=== PATIENT | female | born 1950 | race Caucasian/White ===

== ENCOUNTER 2024-06-19 00:13 | Inpatient (IN) | payer MEDICARE, SELFPAY ==
[2024-06-19] VITALS (38 sets, daily range): BP systolic 134–224; BP diastolic 72–120; PULSE 68–99; RESP 12–98; TEMP 36.3–37.5; O2SAT 95–100; BMI 21.6
--- NOTE | 2024-06-19 00:22 | EDNOTE_ITS ---
ED General RME/HPI General Chief complaint: Altered Mental Status Stated complaint: LEFT SIDED WEAKNESS,FELL, HIT HEAD Time Seen by Provider: 06/19/24 01:03 Arrival date/time: 06/19/24 00:13 RME / HPI RME / HPI narrative: Dr. Azevedo?s Main ED Evaluation: 73yo female BIB family via private auto presents to the ED for neurological symptoms. Stroke alert initiated at 0020. Patient states she went to bed at 2230, reporting she woke up just [employer] and reached over to grab water off of her nightstand when she started having left- sided numbness. She couldn't feel her left-sided extremities and fell out of bed, reporting she hit her head. She denies any history of similar symptoms. Denies any headache, neck pain, slurred speech or any other associated symptoms. No known allergies. Related Data Home Medications ?Medication ?Instructions ?Recorded ?Confirmed acetaminophen 650 mg 650 mg PO Q8HR PRN Pain 06/19/24 06/19/24 tablet,extended release albuterol sulfate 90 mcg/actuation 2 puff inhalation Q4-5H PRN 06/19/24 06/19/24 aerosol inhaler Shortness Of Breath alprazolam 0.5 mg tablet 0.5 mg PO QPM 06/19/24 06/19/24 budesonide 160 mcg-glycopyr 9 1 puff inhalation 2XD 06/19/24 06/19/24 mcg-formot 4.8 mcg/actuation HFA inhaler (Breztri Aerosphere) fluticasone propionate 50 1 spray intranasal 1XD 06/19/24 06/19/24 mcg/actuation nasal spray,suspension lisinopril 10 mg tablet 10 mg PO 1XD 06/19/24 06/19/24 Previous Rx's ?Medication ?Instructions ?Recorded aspirin 81 mg tablet,delayed 81 mg PO QDAY 30 days #30 tabs 06/20/24 release atorvastatin 80 mg tablet 80 mg PO HS 30 days #30 tabs 06/20/24 clopidogrel 75 mg tablet 75 mg PO QDAY 30 days #30 tabs 06/20/24 Allergies Allergy/AdvReac Type Severity Reaction Status Date / Time No Known Allergies Allergy Verified 06/19/24 00:27 Review of Systems Review of Systems Systems Reviewed: All systems reviewed, normal except as documented Narrative Review of Systems: Gen: No fever, no chills, no weight loss EYES: No discharge, no visual changes, no pain HEENT: No ear pain, no congestion, no sore throat PULM: No shortness of breath, no cough, no congestion CV: No chest pain, no dyspnea on exertion, no palpitations GI: No nausea, no vomiting, no diarrhea, no pain, no constipation : No frequency, no urgency, no dysuria Musc/skel: No joint pain, no back pain Skin: No rash Psyc: No hallucinations, no depression Heme/Lymph: No easy bleeding or bruising tendencies Neuro: + LUE weakness, no headache, + head strike Past Medical History Past Medical History NEUROLOGIC: Negative Neurological Disorders or Seizures CARDIAC: Positive Cardiac Disorders and Hypercholesterolemia; Negative Congestive Heart Failure RESPIRATORY: Positive Chronic Obstructive Pulmonary Disease (COPD) GASTROINTESTINAL: Positive Gastrointestinal Disorders, Ulcer, Hiatal Hernia, Gastroesophageal Reflux Disease and Obesity GENITOURINARY: Positive Genitourinary Disorders (Stress incontinence); Negative Renal Disease REPRODUCTIVE: Positive Previous Pregnancies MUSCULOSKELETAL: Positive Musculoskeletal Disorders, Arthritis and Rheumatoid Arthritis ENDOCRINE: Negative Endocrine Disorders, Diabetes Mellitus Type 1, Diabetes Mellitus Type 2 or Hypothyroidism HEMATOLOGIC: Negative Blood Disorders or Anemia PSYCHO/SOCIAL: Positive Depression and Anxiety OTHER HISTORY: Positive Falls; Negative Hospitalization, Blood Transfusions, Blood Transfusion Reaction, Anesthesia Reactions or Cancer Surgical History SURGICAL: Positive Hysterectomy Social History SMOKING STATUS: Light (< 1 pack/day) ED Exam Narrative Physical exam: GENERAL APPEARANCE: alert and oriented x 4, well-developed, well-nourished, no acute distress HEENT: Normocephalic, atraumatic; pupils equal, round, reactive to light; EOMI; mucous membranes pink, moist; oropharynx clear NECK: Supple LUNGS: CTABL; no wheezes, no rales, no rhonchi HEART: Regular rate, regular rhythm; normal S1, S2; no murmurs ABDOMEN: non distended; normal BS; soft, no tenderness, no guarding, no rebound; no masses, no organomegaly, no hernia BACK: no CVA tenderness EXTREMITIES: atraumatic; no edema NEUROLOGIC: awake; alert and oriented x4; cranial nerves II-XII grossly intact; LUE weakness, no pronator drift PSYCHIATRIC: appropriate mood and affect SKIN: warm, dry, normal color; no rashes Course Course Course Narrative: 0020: Stroke alert initiated from triage. I immediately went to evaluate the patient. Quality Measures Suspected type of Stroke: TIA Tenecteplase given: Reason(s) TPA not given: Unable to determine eligibility not given stroke Orders Category Date Time Status Bedside Blood Glucose NOW Care 06/19/24 00:23 Completed Finishing Machine Operator Automatic NOW Care 06/19/24 00:23 Completed Continuous Pulse Oximetry NOW Care 06/19/24 00:23 Completed EKG (ED ONLY) *Do not use* NOW Care 06/19/24 00:23 Completed In and Out Catheter NEEDED Care 06/19/24 00:23 Completed Insert IV NOW Care 06/19/24 00:23 Completed NIH Stroke Scale now Care 06/19/24 00:23 Completed NPO NOW Care 06/19/24 00:23 Completed Nurse Swallow Screen x1 Care 06/19/24 00:23 Completed Consult to Neurology / Tele-Neurology Routine Cons 06/19/24 00:[address] angio stroke protocol Stat Exams 06/19/24 00:[address] stroke protocol Stat Exams 06/19/24 00:23 Completed EKG (ED Only) Stat Exams 06/19/24 00:23 Draft Alcohol, Blood Medical Stat Lab 06/19/24 00:30 Completed B-Type Natriuretic Peptide Stat Lab 06/19/24 00:30 Completed CBC Stat Lab 06/19/24 00:30 Completed Comprehensive Metabolic Panel Stat Lab 06/19/24 00:30 Completed Drug Screen,Urine Stat Lab 06/19/24 08:20 Completed Magnesium Stat Lab 06/19/24 00:30 Completed Partial Thromboplastin Time Stat Lab 06/19/24 00:30 Completed Prothrombin Time with INR Stat Lab 06/19/24 00:30 Completed Troponin I Stat Lab 06/19/24 00:30 Completed Urinalysis Stat Lab 06/19/24 08:20 Completed Urine Culture Stat Lab 06/19/24 08:20 Completed Aspirin Med 06/19/24 01:03 Discontinued 325 mg PO X1 ONE Ondansetron Inj [Zofran Inj] Med 06/19/24 00:23 Discontinued 4 mg IV Q4HR PRN Oxygen Delivery NOW RT 06/19/24 00:23 Completed Vital Signs Vital signs: Vital Signs Temperature 97.5 F 06/19/24 00:28 Pulse Rate 98 06/19/24 00:28 Respiratory Rate 18 06/19/24 00:28 Blood Pressure 224/120 H 12/11/24 00:28 Pulse Oximetry (%) 99 06/19/24 00:28 Oxygen Delivery Method Room Air 06/19/24 00:28 [facility] Patient data External records reviewed:: [facility] previous records (Per chart review, patient has no previous ED visits or admissions to this facility.) Clinical information provided by:: patient Social determinants that could affect healthcare access:: none Patient has the following chronic illnesses:: COPD, HLD, anxiety, depression How is presenting disease/condition affected by chronic disease/condition?: u neffected by Evaluation data The following diagnostics were reviewed and interpreted by me:: lab results, radiology exam(s) and EKG tracing(s) Lab and/or radiology exams considered but not ordered:: none Interpretation Summary: CBC is normal, CMP is normal, Troponin is normal, PT and INR are normal, PTT is normal, according to my interpretation. EKG done at 0059, NSR, rate of 93, occasional PAC, normal intervals, no acute ST or T wave changes, no STEMI, according to my interpretation. -------- Telerad Preliminary Report Draft Patient: ALEXX GUPTA [facility]. Record#: [id number] Birthdate: 1950 Age/Sex: 73 / F Location: [facility] Attending Dr: Ordering Physician: Date of Service: Procedure(s): Accession Number(s): cc: ~ CT scan of the head without intravenous contrast (axial sections with sagittal and coronal reformats) June 19, 2024 at 0027 hours Clinical history: Focal neuro deficit, stroke suspected. Comparison: No prior study is available for comparison. Findings: There is no evidence of intracranial hemorrhage, mass effect or midline shift. There are periventricular white matter hypodensities, compatible with chronic small vessel ischemia. There is moderate volume loss. The calvarium is unremarkable. The mastoid air cells and the visualized paranasal sinuses are clear. Impression: No evidence of intracranial hemorrhage, mass effect or midline shift. Periventricular chronic small vessel ischemia and volume loss. Aspect score 10. Discussion Details: Results verbally communicated to : Dr. Azevedo at 12:42 AM 06/19/2024 Report Electronically Signed By: Leeroy Cavazos 06/19/2024 12:46:24 AM [EST] Medications Medications considered but not ordered:: none Medication administrations:: Medication Administration History Discontinued Medications Acetaminophen (Acetaminophen 325 Mg Tablet) 650 mg PO Q6H PRN PRN Reason: Fever >100.3 or Pain 1-3 Stop: 07/19/24 01:18 Last Admin: 06/19/24 15:55 Dose: 650 mg Documented By: AM Albuterol/Ipratropium (Albuterol/Ipratropium (Duoneb) Rt June 3 Ml Nebu) 3 ml INH Q6HRRT PRN PRN Reason: SHORTNESS OF BREATH OR WHEEZE Stop: 07/19/24 06:59 Aspirin (Aspirin 325 Mg Tablet) 325 mg PO X1 ONE Stop: 06/19/24 01:04 Last Admin: 06/19/24 01:11 Dose: 325 mg Documented By: DAISY Aspirin (Aspirin 325 Mg Tablet) 325 mg PO QDAY [facility] Stop: 07/19/24 08:59 Last Admin: 06/19/24 08:51 Dose: 325 mg Documented By: NINI Aspirin (Aspirin Ec 81 Mg Tabec) 81 mg PO X1 JOYCE Stop: 07/20/24 08:59 Aspirin (Aspirin Ec 81 Mg Tabec) 81 mg PO QDAY JOYCE Stop: 07/20/24 08:59 Last Admin: 06/20/24 08:17 Dose: 81 mg Documented By: HORACIO Atorvastatin Calcium (Atorvastatin Calcium 20 Mg Tablet) 80 mg PO HS JOYCE Stop: 07/19/24 20:59 Last Admin: 06/19/24 22:41 Dose: 80 mg Documented By: URIAH Clopidogrel Bisulfate (Clopidogrel Bisulfate 75 Mg Tablet) 75 mg PO QDAY JOYCE Stop: 07/19/24 13:14 Last Admin: 06/20/24 08:17 Dose: 75 mg Documented By: Admin: 06/19/24 13:16 Dose: 75 mg Documented By: AM Heparin Sodium (Porcine) (Heparin Sod Inj 5000 Unit/Ml Vial) 5,000 unit SC Q12HR JOYCE Stop: 07/03/24 08:59 Last Admin: 06/20/24 08:21 Dose: Not Given Documented By: HORACIO Non-Admin Reason: Per MD rogerio jensen Admin: 06/19/24 22:40 Dose: 5,000 unit Documented By: URIAH Co-signed By: HORACIO Admin: 06/19/24 08:51 Dose: 5,000 unit Documented By: AM Co-signed By: KYLIE Magnesium Sulfate (Magnesium Sulfate Ivpb) 4 gm in 50 mls @ 12.5 mls/hr IV X1 ONE Stop: 06/20/24 11:46 Last Admin: 06/20/24 08:16 Dose: 12.5 mls/hr Documented By: HORACIO Labetalol HCl (Labetalol Inj 5 Mg/Ml Vial 20 Ml) 10 mg IVP X1 ONE Stop: 06/19/24 01:17 Last Admin: 06/19/24 04:39 Dose: Not Given Documented By: TC Non-Admin Reason: Contraindicated Labetalol HCl (Labetalol Inj 5 Mg/Ml Vial 20 Ml) 10 mg IVP Q2HR PRN PRN Reason: elevated blood pressure Stop: 07/19/24 01:59 Lisinopril (Lisinopril 2.5 Mg Tablet) 10 mg PO QDAY JOYCE Stop: 07/20/24 08:59 Last Admin: 06/20/24 08:17 Dose: 10 mg Documented By: HORACIO Metoclopramide HCl (Metoclopramide Inj 5 Mg/Ml Vial 2 Ml) 10 mg IVP X1 ONE; Protocol Stop: 06/19/24 17:33 Last Admin: 06/19/24 18:06 Dose: 10 mg Documented By: AM Ondansetron HCl (Ondansetron Inj 2 Mg/Ml Inj 2 Ml) 4 mg IV Q4HR PRN PRN Reason: NAUSEA OR VOMITING Stop: 07/19/24 00:22 see above Consultations Consultation(s) initiated? (list below): Yes Consultation #1 (Physician, Specialty, Details): Discussed case with [Dr. Chacko] from [teleneurology] regarding [consultation]. Discussed patients ED course, exam findings, labs, and radiology results. Recommends giving Aspirin 325mg, MRI, and admitting for further work- up. Time: 00:49 Consultation #2 (Physician, Specialty, Details): Discussed case with [Dr. Ocampo] from Hospitalist service regarding admission. Discussed patients ED course, exam findings, labs, and radiology results. The Hospitalist [agrees] to accept the patient for admission. Time: 01:03 Diagnosis Differential Diagnosis ED Complaint MDM: CVA, TIA, seizure Most likely diagnosis given after review of the tests above:: see below Admission Indicated Admission indicated?: indicated Explain why admission is indicated or not indicated:: Patient requires inpatient monitoring and further work-up. Admission Request Was there a request for admission?: Yes Admission Attestation Admission request attestation: Discussed case with [] from Hospitalist service regarding admission. Discussed patients ED course, exam findings, labs, and radiology results. The Hospitalist [agrees,declines] to accept the patient for admission. Disposition Plan Disposition Plan: Admit Medical Decision Making MDM Narrative MDM Narrative: Scribe Attestation: 06/19/24 - Elise Alegria am scribing for and in the presence of Dr. Azevedo. Differential Diagnosis Differential Diagnosis: CVA, TIA, seizure Lab Data 06/20/24 04:20 06/20/24 04:20 Labs: Lab Results 06/19/24 Range/Units 00:30 WBC 9.7 (3.6-11.0) Thou/mm3 RBC 4.20 (4.00-5.20) Miln/mm3 Hgb 13.1 (12.0-16.0) g/dL Hct 39.9 (36.0-46.0) % MCV 95 (80-100) fL MCH 31.2 (25.0-35.0) pg MCHC 32.8 (31.0-37.0) g/dl RDW Std Deviation 46.2 (36.4-46.3) fL Plt Count 211 (140-440) Thou/mm3 Neut % (Auto) 72 (37-80) % Lymph % (Auto) 18 (10-50) % [place] % (Auto) 7 (0-12) % Eos % (Auto) 2 (0-10) % Baso % (Auto) 1 (0-2.5) % Neut # (Auto) 7.0 (1.8-7.7) Thou/mm3 Lymph # (Auto) 1.8 (1.0-4.8) Thou/mm3 [place] # (Auto) 0.7 (0.0-0.8) Thou/mm3 Eos # (Auto) 0.2 (0.0-0.5) Thou/mm3 Baso # (Auto) 0.1 (0.0-0.2) Thou/mm3 Immature Gran # (Auto) 0.02 H (0.00-0.00) Thou/mm3 Absolute Nucleated RBC 0.00 (0.00-0.00) Thou/mm3 Immature Gran % 0 (0-0) % Nucleated RBC % 0 (0) /100 WBC PT 10.5 (9.0-12.2) Seconds INR 1.0 (0.9-1.3) APTT 26.1 (22.0-36.0) Seconds Sodium 144 (136-145) mMol/L Potassium 4.0 (3.4-5.1) mMol/L Chloride 110 H (98-107) mMol/L Carbon Dioxide 27.0 (20.0-31.0) mMol/L Anion Gap 7 (7-16) BUN 17 (9-23) mg/dL Creatinine 1.1 (0.6-1.3) mg/dL Estim Creat Clear Calc Not Performed. eGFR 54 L (60 - ) See Note BUN/Creatinine Ratio 15 (12-20) Ratio Glucose 108 H (74-106) mg/dL Calculated Osmolality 289 (275-295) Calcium 10.3 (8.3-10.6) mg/dL Corrected Calcium 10.3 H (8.5-10.1) mg/dL Magnesium 2.0 (1.6-2.6) mg/dL Total Bilirubin 0.3 (0.3-1.2) mg/dL AST 15 (0-34) U/L ALT 9 L (10-49) U/L Alkaline Phosphatase 84 (46-116) U/L Troponin I < 0.020 (0.0-0.045) ng/mL Total Protein 7.1 (5.7-8.2) gm/dL Albumin 4.5 (3.4-4.8) gm/dL Globulin 2.6 (2.3-3.5) gm/dL Albumin/Globulin Ratio 1.7 (1.2-2.2) Ethyl Alcohol < 3.0 (0-10.0) mg/dL Critical Care Time Critical Care Time Critical Care Time: Yes Total Critical Care Time (min.): 40 Attestation: The high probability of sudden, clinically significant deterioration in the patient?s condition required the highest level of my preparedness to intervene urgently. The services I provided to this patient were to treat and/or prevent clinically significant deterioration. Services included the following: chart data review, reviewing nursing notes and/or old charts, documentation time, workday financials consultant collaboration regarding findings and treatment options, medication orders and management, direct patient care, vital sign assessments and ordering, interpreting and reviewing diagnostic studies and lab tests. Aggregate critical care time includes only time during which I was engaged in work directly related to the patient?s care, as described above, whether at bedside or elsewhere in the Emergency Department. It did not include time spent performing other reported procedures or the services of residents, students, nurses or physician assistants. Discharge Plan Plan Patient Disposition: Admit Acute Care w/in Hospital Disposition Comment: Dr. Ocampo - Telemetry Problem List Clinical Impression: Brain TIA, Paresthesia, Left-sided weakness Patient/Caregiver Discharge Instructions Discharge Activity: activity as tolerated
--- NOTE | 2024-06-19 00:23 | XR_ITS ---
Examination: CTA carotids with intravenous contrast CTA brain, head with intravenous contrast. 2-D sagittal, coronal reconstructions. 3-D reconstructions. Exam date and time: June 19, 2024 0032 hours INDICATIONS: Stroke alert, onset focal neurologic deficit, onset left-sided body weakness headache beginning one hour ago CTDI: vol (mGy) 21.27 DLP: (mGycm) 509 Technique: Multiple CTA axial brain, head carotid images post intravenous contrast injection 75 cc, [id number]. 2-D sagittal, coronal reconstructions. 3-D reconstructions, 3-D post processing including vascular maximum intensity projection images. Low dose protocols were performed. One or more of the following dose reduction techniques were used; automated exposure control, adjustment of the mA and/or KV according to patient size, use of iterative reconstruction technique. Findings: No significant stenoses common carotid arteries carotid bifurcations or internal carotid arteries Dominant left vertebral artery with no critical stenoses Enlarged thyroid lobes with multiple bilateral nodules Parenchymal disease at the right apex Suspicious for 90% stenosis distal M1 segment right middle cerebral artery Juxtasellar supraclinoid portions of the internal carotid arteries as well as basilar artery posterior cerebral branches do fill Anterior cerebral arteries do fill IMPRESSION: No significant neck arterial stenoses Enlarged thyroid lobes with multiple thyroid nodules, consider dedicated thyroid sonography follow-up Apical right parenchymal disease, recommend AP lordotic chest follow-up Suspicious for 90% stenosis distal M1 segment right middle cerebral artery Consider brain MRI MRA without contrast, stroke protocol, follow-up
--- NOTE | 2024-06-19 00:23 | EKG_ITS ---
[facility] Test Date: 2024-06-19 Pat Name: ALEXX GUPTA Department: Room: - Gender: Female [employer] Sewer: : 1950 Requested By: Kaitlin Clifford Order Number: [id number] Reading MD: Kaitlin Clifford Measurements Intervals [place] Rate: 93 P: 72 GA: 168 QRS: -4 QRSD: 98 T: 61 QT: 368 QTc: 458 Interpretive Statements SINUS RHYTHM WITH OCCASIONAL SUPRAVENTRICULAR PREMATURE COMPLEXES No previous ECG available for comparison /store/S0/[id number]/[id number].pdf
--- NOTE | 2024-06-19 00:23 | XR_ITS ---
Examination: CT brain head without contrast. 2-D sagittal coronal reconstructions Date and time of exam:June 19, 2024 0027 hours INDICATIONS: Stroke alert, onset focal neurologic deficits, onset left-sided body weakness head pain beginning one hour ago CTDI: vol (mGy):50.50 DLP: (mGycm):1073 Technique: Multiple CT axial sections of the brain have been obtained, 5 mm slice thickness. Contrast has not been administered. 2-D sagittal, coronal reconstructions have been obtained Low dose protocols were performed. One or more of the following dose reduction techniques were used; automated exposure control, adjustment of the mA and/or KV according to patient size, use of iterative reconstruction technique. Findings: No significant ventricular enlargement. Intra-axial or extra-axial hemorrhage density is not seen. No mass effect or midline shift Basal cisterns are not remarkable. Fourth ventricle is midline. Cranial vault intact. Impression: Negative for acute hemorrhage, mass effect or midline shift
--- NOTE | 2024-06-19 00:26 | PC.NURSE ---
MD MORILLO SEEN PT IN ER TRIAGE AND ASSESSED. STROKE ALERT INITIATED. PT TAKEN TO CT WITH RADHIKA HORN.
[2024-06-19 00:43] LABS: Basophils # (Auto) 0.1 Thou/mm3 (0.0-0.2); Basophils % (Auto) 1 % (0-2.5); Eosinophils # (Auto) 0.2 Thou/mm3 (0.0-0.5); Eosinophils % (Auto) 2 % (0-10); Hematocrit 39.9 % (36.0-46.0); Hemoglobin 13.1 g/dL (12.0-16.0); Immature Granulocytes % (Auto) 0 % (0-0); Immature Granulocytes Auto 0.02 Thou/mm3 (0.00-0.00); Lymphocytes # (Auto) 1.8 Thou/mm3 (1.0-4.8); Lymphocytes % (Auto) 18 % (10-50); Mean Corpuscular HGB Conc 32.8 g/dl (31.0-37.0); Mean Corpuscular Hemoglobin 31.2 pg (25.0-35.0); Mean Corpuscular Volume 95 fL (80-100); Monocytes # (Auto) 0.7 Thou/mm3 (0.0-0.8); Monocytes % (Auto) 7 % (0-12); Neutrophils % (Auto) 72 % (37-80); Nucleated Red Blood Cell % 0 /100 WBC (0); Platelet Count 211 Thou/mm3 (140-440); RDW Standard Deviation 46.2 fL (36.4-46.3); White Blood Count 9.7 Thou/mm3 (3.6-11.0)
--- NOTE | 2024-06-19 00:46 | PRELIM_ITS ---
CT scan of the head without intravenous contrast (axial sections with sagittal and coronal reformats) June 19, 2024 at 0027 hoursClinical history: Focal neuro deficit, stroke suspected.Comparison: N o prior study is available for comparison. Findings:There is no evidence of intracranial hemorrhage, mass effect or midline shift. There are periventricular white matter hypodensities, compatible with c hronic small vessel ischemia. There is moderate volume loss. The calvarium is unremarkable. The masto id air cells and the visualized paranasal sinuses are clear.Impression:No evidence of intracranial he morrhage, mass effect or midline shift.Periventricular chronic small vessel ischemia and volume loss. Aspect score 10.Discussion Details: Results verbally communicated to : Dr. Azevedo at 12:42 AM 2023 Report Electronically Signed By: Leeroy Cavazos 06/19/2024 12:46:24 AM [EST]
--- NOTE | 2024-06-19 00:53 | ESCONSULT_ITS ---
Tele Neuro Consultation Consultation Date 06/19/24 Consultation Narrative [facility] Tele[facility]urology Consult Services Patient Name:???Mary Oquendo Date of :???1950 Identification Number:??? Date of Service:???06/19/2024 00:25:37 Diagnosis:?R20.2 - Paresthesia of skin Impression: ?Patient presented with left sided weakness. Head CT shows no acute process. would recommend ASA for secondary prevention. Our recommendations are outlined below. Recommendations: ? Stroke/Telemetry Floor ? Neuro Checks ? Bedside Swallow Eval ? DVT Prophylaxis ? IV Fluids, Normal Saline ? Head of Bed 30 Degrees ? Euglycemia and Avoid Hyperthermia (PRN Acetaminophen) ? Initiate or continue Aspirin 325 MG daily ? Antihypertensives PRN if Blood pressure is greater than 220/120 or there is a concern for End organ damage/contraindications for permissive HTN. If blood pressure is greater than 220/120 give labetalol PO or IV or Vasotec IV with a goal of 15% reduction in BP during the first 24 hours. Sign Out: ? Discussed with Emergency Department Provider Advanced Imaging:Advanced Imaging Deferred because: Non-disabling symptoms as verified by the patient; no cortical signs so not consistent with LVO Metrics: Last Known Well: 06/18/2024 20:30:00 Dispatch Time: 06/19/2024 00:24:47 Arrival Time: 06/19/2024 00:13:00 Initial Response Time: 06/19/2024 00:34:00Symptoms: Left sided numbness. Initial patient interaction: 06/19/2024 00:42:32 NIHSS Assessment Completed: 06/19/2024 00:49:09Patient is not a candidate for Thrombolytic. Thrombolytic Medical Decision: 06/19/2024 00:49:10Patient was not deemed candidate for Thrombolytic because of following reasons: Stroke severity too mild (non-disabling) . CT head showed no acute hemorrhage or acute core infarct. Primary Provider Notified of Diagnostic Impression and Management Plan on: 06/19/2024 00:50:50 History of Present Illness:Patient is a 73 year old Female. Patient was brought by private transportation with symptoms of Left sided numbness. Past Medical history of hyperlipidemia, Hypertension presented with left sided weakness, numbness. History was provided by the patient at bedside. Last seen normal was around 2029 when she went to bed. Woke up around 2300 and feel. Concern of left sided numbness and was brought in to ER ? Past Medical History: ?Hypertension ?Hyperlipidemia Medications: No Anticoagulant use? No Antiplatelet use Reviewed EMR for current medications Allergies:? Reviewed Social History: Smoking: Yes Family History: There is no family history of premature cerebrovascular disease pertinent to this consultation ROS : 14 Points Review of Systems was performed and was negative except mentioned in HPI. Past Surgical History: There Is No Surgical History Contributory To Today?s Visit ? Examination: BP(234/111),?Pulse(77), 1A: Level of Consciousness - Alert; keenly responsive?+ 0 1B: Ask Month and Age - 1 Question Right?+ 1 1C: Blink Eyes & Squeeze Hands - Performs Both Tasks?+ 0 2: Test Horizontal Extraocular Movements - Normal?+ 0 3: Test Visual Jo - No Visual Loss?+ 0 4: Test Facial Palsy (Use Grimace if Obtunded) - Normal symmetry?+ 0 5A: Test Left Arm Motor Drift - No Drift for 10 Seconds?+ 0 5B: Test Right Arm Motor Drift - No Drift for 10 Seconds?+ 0 6A: Test Left Leg Motor Drift - No Drift for 5 Seconds?+ 0 6B: Test Right Leg Motor Drift - No Drift for 5 Seconds?+ 0 7: Test Limb Ataxia (FNF/Heel-Prabhakar) - No Ataxia?+ 0 8: Test Sensation - Mild-Moderate Loss: Less Sharp/More Dull?+ 1 9: Test Language/Aphasia - Normal; No aphasia?+ 0 10: Test Dysarthria - Normal?+ 0 11: Test Extinction/Inattention - No abnormality?+ 0 NIHSS Score:?2 NIHSS Free Text :?normal gait Pre-Morbid Modified [place] Scale:0 Points = No symptoms at all Spoke with :?Jolly This consult was conducted in real time using interactive audio and video technology. Patient was informed of the technology being used for this visit and agreed to proceed. Patient located in hospital and provider located at home/office setting. Patient is being evaluated for possible acute neurologic impairment and high probability of imminent or life-threatening deterioration. I spent total of 30 minutes providing care to this patient, including time for face to face visit via telemedicine, review of medical records, imaging studies and discussion of findings with providers, the patient and/or family. Dr Chilango Chacko [facility] For Inpatient follow-up with [facility] physician please call [facility] at . As we are not an outpatient service for any post hospital discharge needs please contact the hospital for assistance. If you have any questions for the [facility] physicians or need to reconsult for clinical or diagnostic changes please contact us via [facility] at .
[2024-06-19 00:57] LABS: B-Type Natriuretic Peptide 33 pg/mL (0-100); Partial Thromboplastin Time 26.1 Seconds (22.0-36.0); Prothrombin Time 10.5 Seconds (9.0-12.2)
[2024-06-19 01:04] LABS: Alanine Aminotransferase 9 U/L (10-49); Albumin, Serum 4.5 gm/dL (3.4-4.8); Albumin/Globulin Ratio 1.7 (1.2-2.2); Alcohol, Blood Medical < 3.0 mg/dL (0-10.0); Alkaline Phosphatase 84 U/L (46-116); Anion Gap 7 (7-16); Aspartate Amino Transferase 15 U/L (0-34); BUN/Creatinine Ratio 15 Ratio (12-20); Bilirubin,Total 0.3 mg/dL (0.3-1.2); Blood Urea Nitrogen 17 mg/dL (9-23); Calcium 10.3 mg/dL (8.3-10.6); Calcium (Corrected) 10.3 mg/dL (8.5-10.1); Chloride 110 mMol/L (98-107); Creatinine (Component) 1.1 mg/dL (0.6-1.3); Globulin 2.6 gm/dL (2.3-3.5); Glucose 108 mg/dL (74-106); Osmolality,Calculated 289 (275-295); Sodium 144 mMol/L (136-145); Total Protein 7.1 gm/dL (5.7-8.2); Troponin I < 0.020 ng/mL (0.0-0.045); eGFR 54 See Note
[2024-06-19] MEDS: Aspirin 325 MG TABLET PO ×2 (01:11→08:51)
--- NOTE | 2024-06-19 01:18 | ECHO_ITS ---
Transthoracic Echo Report Ht (in): 67 Wt (lb): 136 Exam Location: ER Status: Preadmit Service Sprinkler Helper: Corrine Arreola Indications: Procedure Performed: BP: 171 / 88 HR: 77 Rhythm: Sinus Technical Quality: Fair Contrast: Agitated Saline Total Dose (mL): MEASUREMENTS (Male / Female) Normal Values 2D ECHO LV Diastolic Diameter PLAX 4.6 cm 4.2 - 5.9 / 3.9 - 5.3 cm LV Systolic Diameter PLAX 3.0 cm IVS Diastolic Thickness 0.9 cm 0.6 - 1.0 / 0.6 - 0.9 cm LVPW Diastolic Thickness 1.0 cm 0.6 - 1.0 / 0.6 - 0.9 cm LV Relative Wall Thickness 0.4 LVOT Diameter 2.0 cm LA Volume Index 25.6 cm?/m? 16 - 28 cm?/m? Ascending Aorta Diameter 3.0 cm M-MODE Aortic Root Diameter MM 2.8 cm LA Systolic Diameter MM 3.6 cm LA Ao Ratio MM 1.3 AV Cusp Separation MM 2.0 cm DOPPLER AV Peak Velocity 147.0 cm/s AV Peak Gradient 8.6 mmHg AV Mean Gradient 4.0 mmHg AV Velocity Time Integral 29.9 cm LVOT Peak Velocity 94.6 cm/s LVOT Peak Gradient 3.6 mmHg LVOT Velocity Time Integral 20.1 cm LVOT Cardiac Index 2849.4 cm?/min?m? AV Area Cont Eq vti 2.1 cm? AV Area Cont Eq pk 2.0 cm? MV Peak Velocity 102.0 cm/s MV Peak Gradient 4.2 mmHg MV Mean Velocity 61.1 cm/s MV Mean Gradient 2.0 mmHg MV Area PHT 3.1 cm? MR Peak Velocity 387.0 cm/s MR Peak Gradient 59.9 mmHg Mitral E Point Velocity 76.6 cm/s Mitral A Point Velocity 91.7 cm/s Mitral E to A Ratio 0.8 LV E' Lateral Velocity 7.2 cm/s Mitral E to LV E' Lateral Ratio 10.7 LV E' Septal Velocity 6.1 cm/s Mitral E to LV E' Septal Ratio 12.6 FINDINGS Left Ventricle Normal left ventricular size, wall thickness, systolic function with no obvious regional wall motion abnormalities. The ejection fraction is visually estimated at 60-65 %. Right Ventricle The right ventricle is normal in size and systolic function. Left Atrium The left atrium is normal by two-dimensional, color flow and Doppler imaging with no structural abnormalities, no thrombus formation present. Right Atrium The right atrium is normal by two-dimensional imaging, color flow and Doppler imaging with no struct ural abnormalities, no thrombus formation present. Atrial Septum The interatrial septum appears normal with no evidence of a shunt. Aorta The aorta is normal by two-dimensional, color flow and Doppler interrogation. Mitral Valve Mildly decreased mobility of the anterior mitral valve leaflet. There is mild mitral valve regurgit ation. Aortic Valve The aortic valve is trileaflet and normal by two-dimensional, color flow and Doppler interrogation. There is no significant aortic valve regurgitation. Tricuspid Valve The tricuspid valve is normal by two-dimensional, color flow and Doppler interrogation. There is tra ce tricuspid valve regurgitation. Pulmonic Valve The pulmonic valve is normal by two-dimensional, color flow and Doppler interrogation. There is no significant pulmonic valve regurgitation. Vessels The pulmonary artery appears normal. The inferior vena cava pulmonary and hepatic veins appear radha l. Pericardium The pericardium is normal by two-dimensional imaging. There is no significant pericardial effusion. CONCLUSIONS Indication: Stroke Negative bubble study. TTE is suboptimal to rule out PFO or ASD. Consider TUCKER if high clinical suspi cion. Normal LV size and function. Stage I diastolic dysfunction. Estimated EF 60-65% Normal RV size and function. Trace TR. Mildly decreased mobility of the anterior mitral valve leaflet. Mild MR. Jah Manzano (Electronically Signed) Final Date: 20 June 2024 05:47
--- NOTE | 2024-06-19 01:18 | XR_ITS ---
Examinations: MRI Brain without intravenous contrast. MRA brain without intravenous contrast. MRA carotids without intravenous contrast 3-D vascular reconstructions Date and time of exam: June 19, 2024 1035 hours INDICATIONS: Stroke alert June 19, 2024 1227 hours, patient could not feel left sided extremities and fell out of bed Technique: Multiple axial and sagittal images of the brain have been obtained MRA brain carotid images without contrast obtained, including 3-D postprocessing, vascular maximum intensity projection images Findings: Sellaturcica is not enlarged. The optic chiasm and infundibular stalk are not remarkable. Prepontine and interpeduncular cisterns are not enlarged. No localized enlargement of the medulla or belen. Fourth ventricle and cerebellar tonsils normal in position. Subacute hemorrhage is not seen. Fourth ventricle is midline. Mass in the cerebellopontine angle region is not evident. 7th and 8th nerve complexes exhibits symmetry. Globes are symmetrical with no retro-orbital mass. Increased white matter signal prominent Diffusion-weighted images demonstrate subtle foci restricted diffusion right caudate nucleus, 12 mm right basal ganglia, 4 mm, axial images 14 and 13 Mass-effect upon the ventricular system is not identified. MRA carotid images no significant carotid stenoses. MRA brain images mild to moderate diffuse cerebral irregularity Impression: Subtle acute infarcts in the right caudate nucleus and right basal ganglia
--- NOTE | 2024-06-19 01:25 | PD.EVENT ---
Documentation for date of: 06/19/24 Event Note Event Note: The patient is a 73-year-old female with a history of hypertension and hyperlipidemia who presented to the Emergency Department with the acute onset of left-sided numbness and weakness. The patient reports that she went to bed at approximately 10:30 PM and woke up around 11:00 PM to reach for water on her nightstand. At that time, she experienced numbness and tingling on the left side, followed by complete left-sided weakness. She attempted to get out of bed but fell, striking her head and jaw on a table. She recalls a brief loss of consciousness but denies associated symptoms such as headache, neck pain, slurred speech, or any similar prior episodes. The patient denies a history of prior stroke. She has a significant smoking history, with one pack per day from age 18 to her 60s, but quit smoking years ago. Alcohol use is minimal, consisting of occasional wine. Her medication regimen includes Lisinopril for hypertension, Meloxicam for arthritis, a breathing treatment, and melatonin for sleep. She reports a history of breast surgery for unclear reasons but denies any history of chemotherapy or radiation. In the Emergency Department, vital signs included blood pressure of 182/106, temperature of 97.5?F, heart rate of 99 bpm, and respiratory rate of 18 breaths per minute. Laboratory results were unremarkable except for a glucose level of 108 mg/dL. CT imaging of the head revealed no evidence of intracranial hemorrhage, mass effect, or midline shift. A review of systems was notable for persistent left-sided weakness but otherwise unremarkable. The patient denies visual disturbances aside from a brief sensation of off vision and denies difficulty swallowing. Teleneurology was consulted, and the patient is being admitted for further evaluation and workup for a possible cerebrovascular accident.
--- NOTE | 2024-06-19 01:41 | PRELIM_ITS ---
CT angiogram of the head and neck with intravenous contrast (axial sections with sagittal and coronal reformats) June 19, 2024 at 0032 hours Clinical History: Focal neuro deficit, stroke suspectedCo mparison: CT of June 19, 2024.Findings:Head: The internal carotid, middle and anterior cerebral a rteries are patent bilaterally. The intracranial vertebral arteries are patent. The vertebrobasilar j unction, basilar and posterior cerebral arteries are patent. No evidence of large vessel occlusion, c ritical stenosis or aneurysm.Neck: The aortic arch to the extent visualized as well as the origins of the right brachiocephalic, left common carotid, and left subclavian arteries are patent. The common carotid arteries, carotid bulbs, and internal and external carotid arteries are patent. The origins o f the vertebral arteries are unremarkable. The left vertebral artery is dominant. No evidence of vasc ular occlusion, critical stenosis, dissection or aneurysm. Enlarged heterogenous thyroid nodule. Righ t upper lobe lung consolidation. Bilateral apical lung scarring. Bilateral upper lobes bronchiectasis .Degenerative changes of the imaged portions of the spine. No acute fractures.Impression: Head: No ev idence of large vessel occlusion, critical stenosis or aneurysm.Neck: No evidence of vascular occlusi on, critical stenosis, dissection or aneurysm.Enlarged heterogenous nodular thyroid. Please, correlat e with thyroid function tests and ultrasound.Bilateral upper lobes bronchiectasis.Right upper lobe co nsolidation suspicious for pneumonia.Discussion Details: Results verbally communicated to : Dr Jarred morales at 01:34 AM 06/19/2024 Report Electronically Signed By: Leeroy Cavazos 06/19/2024 1:40:37 AM [ES T]
--- NOTE | 2024-06-19 02:17 | PD.RESHP ---
Documentation for date of: 06/19/24 [facility] History of Present Illness History of present illness: The patient is a 73-year-old female with a past medical history of hypertension, hyperlipidemia, COPD and arthritis who presents to the ED on 06/19/2024 with left-sided numbness and weakness. Per who is at bedside, patient had gone to bed at about 10:30 PM and was coughing a lot after which she reach for water on her nightstand. At that time, patient reported numbness and tingling on her left side and associated weakness and reports seeing a left droop. She attempted to get out of bed, she fell and struck her head on a table, no report of brief period of loss of consciousness but denied headache, bleeding, headache or slurred speech. According to them, the symptoms resolved while on the way to the ED. She does mention that at baseline, she has some residual left-sided weakness, but has not had a stroke in the past to her knowledge. Patient has a significant smoking history has been smoking for about 44 years and still smokes. ED course: In the ED, patient was noted to be afebrile, hypertensive with a blood pressure of 182/106, however saturating 98% on room air. CBC and CMP were unremarkable except for glucose level of 108. Based on patient's symptoms, stroke protocol was initiated and CT head was done which was negative for hemorrhage, mass effect or midline shift. Teleneuro was consulted, NIHSS was 2 and the patient was recommended to be admitted for CVA rule out. PMHx-as above PSHx-Nil Social history-current smoker, social drinker, no illicit drugs Home meds-lisinopril, meloxicam, simvastatin Review of Systems Review of Systems Narrative Review of Systems: GENERAL: Denies fevers/chills or diaphoresis. HEENT: Denies headache or visual/hearing changes. Denies nasal discharge. NEURO: Admits unusual weakness denies difficulty speaking CARDIO: Denies chest pain or palpitations. PULM: Denies SOB, coughing, or wheezing. GI: Denies abdominal pain, N/V/C/D/reflux/gas, bright red blood per rectum or melena. Reports having BMs. URO: Denies burning/itching/pain/urinary changes. MSK/EXT/SKIN: Admits pain in the left knee PSYCH: Cooperative, pleasant mood & affect. Exam Vital Signs Temp Pulse Resp BP Pulse Ox O2 Del Method 97.5 F 87 18 190/89 H 97 Room Air 06/19/24 00:28 06/19/24 01:16 06/19/24 01:16 06/19/24 01:16 06/19/24 01:16 06/19/24 01:16 Narrative Exam GENERAL: AAOX3. 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 CN II-XII intact. HEENT: Moist mucosa. Eyes open, symmetrical, & clear. CARDIO: No chest pain on palpation. Heart RRR, no obvious murmurs. PULM: No noted coughing/dyspnea. Lungs CTA B/L. GI: Abdomen soft, nondistended, no pain on palpation. BSx4. URO/CREDIT HISTORIAN:: No further abnormalities noted. SKIN/MSK/EXT: left knee tender to palpation. Pedal pulses present B/L. Results: Labs 06/19/24 04:35 06/19/24 04:35 Labs: Short CBC 06/19/24 Range/Units 00:30 WBC 9.7 (3.6-11.0) Thou/mm3 Hgb 13.1 (12.0-16.0) g/dL Hct 39.9 (36.0-46.0) % Plt Count 211 (140-440) Thou/mm3 BMP 06/19/24 00:30 Sodium 144 Potassium 4.0 Chloride 110 H Carbon Dioxide 27.0 BUN 17 Creatinine 1.1 Glucose 108 H Calcium 10.3 Cardiac Enzymes 06/19/24 Range/Units 00:30 Troponin I < 0.020 (0.0-0.045) ng/mL Liver Function 06/19/24 Range/Units 00:30 Total Bilirubin 0.3 (0.3-1.2) mg/dL AST 15 (0-34) U/L ALT 9 L (10-49) U/L Alkaline Phosphatase 84 (46-116) U/L Albumin 4.5 (3.4-4.8) gm/dL Quality Measures Quality Measures stroke Suspected type of Stroke: TIA Tenecteplase given: Reason(s) Tenecteplase not given: Outside the time window not given Rehab services: PT evaluation ordered and Speech Language Pathology eval ordered VTE Prophylaxis: mechanical Antithrombotic by day 2:: ordered Statin ordered: >75 y/o moderate or high intensity dose Anticoagulation ordered for A-fib or flutter (current or hx): not indicated Advance care planning discussed with:: patient Medications Home Medications and Allergies Home Medications ?Medication ?Instructions ?Recorded ?Confirmed ?Type acetaminophen 650 mg 650 mg PO Q8HR PRN Pain 06/19/24 06/19/24 History tablet,extended release albuterol sulfate 90 mcg/actuation 2 puff inhalation Q4-5H PRN 06/19/24 06/19/24 History aerosol inhaler Shortness Of Breath alprazolam 0.5 mg tablet 0.5 mg PO QPM 06/19/24 06/19/24 History budesonide 160 mcg-glycopyr 9 1 puff inhalation 2XD 06/19/24 06/19/24 History mcg-formot 4.8 mcg/actuation HFA inhaler (Breztri Aerosphere) fluticasone propionate 50 1 spray intranasal 1XD 06/19/24 06/19/24 History mcg/actuation nasal spray,suspension lisinopril 10 mg tablet 10 mg PO 1XD 06/19/24 06/19/24 History meloxicam 15 mg tablet 15 mg PO 1XD 06/19/24 06/19/24 History Allergies Allergy/AdvReac Type Severity Reaction Status Date / Time No Known Allergies Allergy Verified 06/19/24 00:27 Visit Medications Acetaminophen (Acetaminophen 325 Mg Tablet) 650 mg PO Q6H PRN PRN Reason: Fever >100.3 or Pain 1-3 Stop: 07/19/24 01:18 Aspirin (Aspirin 325 Mg Tablet) 325 mg PO QDAY JOYCE Stop: 07/19/24 08:59 Atorvastatin Calcium (Atorvastatin Calcium 20 Mg Tablet) 80 mg PO HS JOYCE Stop: 07/19/24 20:59 Heparin Sodium (Porcine) (Heparin Sod Inj 5000 Unit/Ml Vial) 5,000 unit SC Q12HR JOYCE Stop: 07/03/24 08:59 Labetalol HCl (Labetalol Inj 5 Mg/Ml Vial 20 Ml) 10 mg IVP Q2HR PRN PRN Reason: elevated blood pressure Stop: 07/19/24 01:59 Ondansetron HCl (Ondansetron Inj 2 Mg/Ml Inj 2 Ml) 4 mg IV Q4HR PRN PRN Reason: NAUSEA OR VOMITING Stop: 07/19/24 00:22 Discontinued Medications Aspirin (Aspirin 325 Mg Tablet) 325 mg PO X1 ONE Stop: 06/19/24 01:04 Last Admin: 06/19/24 01:11 Dose: 325 mg Labetalol HCl (Labetalol Inj 5 Mg/Ml Vial 20 Ml) 10 mg IVP X1 ONE Stop: 06/19/24 01:17 Assessment & Plan Assessment Summary: The patient is a 73-year-old female with a past medical history of hypertension, hyperlipidemia and arthritis who presents to the ED on 06/19/2024 with left-sided numbness and weakness. #Acute CVA rule out versus TIA The patient presented after she notices left-sided numbness and weakness at about 10:30 PM while she reached for water on her nightstand. at bedside also mentions that he noticed left facial droop. Patient fell when she attempted to stand and hit her head, states she briefly lost consciousness there is no bleeding, no slurred speech and no headaches. All symptoms had resolved en route the hospital. In the ED, patient was hypertensive with a blood pressure 182/106. Stroke protocol was initiated and CT head was negative, tPA was not indicated. Head CT was done which was negative for acute hemorrhage, mass effect or midline shift. Teleneuro was consulted, NIHSS was 2. Plan: -Admit to telemetry -N.p.o. until swallow eval passed -Head of bed elevation -Aspirin 325 mg daily -Permissive hypertension -MRI stroke protocol -Neurology consulted, pressure recommendations -Echocardiogram #History of hypertension #History of hyperlipidemia The patient has a history of hypertension and hyperlipidemia and is on lisinopril 10 mg daily and simvastatin. Blood pressure on interview was 202/106, allowing permissive hypertension for 24 hours. Plan: -Hold BP meds for now, permissive hypertension -Atorvastatin 80 mg -Lipid panel in a.m. #History of COPD Patient has a longstanding smoking history history of COPD. Takes breathing treatments at home as well as rescue inhalers. Plan: -DuoNebs as needed Health maintenance: Dispo: Tele Diet: NPO until swallow eval passed DVT: SCDs Velasquez: None Lines: Peripheral PT: Ordered Code:Full Case was discussed with attending physician, Dr Terrence Mas MD PGY-1 Attending Provider Attestation/Addendum Pt was evaluated and plan formulated together with the housestaff team. I have reviewed the residents note above and agree with most of its content. Please refer to the residents note for additional details.
[2024-06-19 04:50] LABS: Basophils # (Auto) 0.1 Thou/mm3 (0.0-0.2); Basophils % (Auto) 1 % (0-2.5); Eosinophils # (Auto) 0.2 Thou/mm3 (0.0-0.5); Eosinophils % (Auto) 2 % (0-10); Hematocrit 37.3 % (36.0-46.0); Hemoglobin 12.3 g/dL (12.0-16.0); Immature Granulocytes % (Auto) 0 % (0-0); Immature Granulocytes Auto 0.02 Thou/mm3 (0.00-0.00); Lymphocytes # (Auto) 1.7 Thou/mm3 (1.0-4.8); Lymphocytes % (Auto) 19 % (10-50); Mean Corpuscular Hemoglobin 31.2 pg (25.0-35.0); Mean Corpuscular Volume 95 fL (80-100); Monocytes # (Auto) 0.7 Thou/mm3 (0.0-0.8); Monocytes % (Auto) 8 % (0-12); Neutrophils # (Auto) 6.3 Thou/mm3 (1.8-7.7); Neutrophils % (Auto) 70 % (37-80); Nucleated Red Blood Cell % 0 /100 WBC (0); Platelet Count 179 Thou/mm3 (140-440); RDW Standard Deviation 45.3 fL (36.4-46.3); Red Blood Count 3.94 Miln/mm3 (4.00-5.20); White Blood Count 8.9 Thou/mm3 (3.6-11.0)
[2024-06-19 05:08] LABS: Glucose Estimated Average 105 mg/dL (80-131); Hemoglobin A1C 5.3 % Hgb (4.8-6.0)
[2024-06-19 05:21] LABS: Alanine Aminotransferase 9 U/L (10-49); Albumin, Serum 4.3 gm/dL (3.4-4.8); Alkaline Phosphatase 71 U/L (46-116); Anion Gap 6 (7-16); Aspartate Amino Transferase 13 U/L (0-34); BUN/Creatinine Ratio 17 Ratio (12-20); Bilirubin,Total 0.3 mg/dL (0.3-1.2); Blood Urea Nitrogen 17 mg/dL (9-23); Calcium 9.4 mg/dL (8.3-10.6); Calcium (Corrected) 9.4 mg/dL (8.5-10.1); Carbon Dioxide 27.2 mMol/L (20.0-31.0); Cardiac Risk Estimate 4.2 RATIO (3.7-5.6); Chloride 110 mMol/L (98-107); Cholesterol 201 mg/dL (132-200); Globulin 2.1 gm/dL (2.3-3.5); Glucose 107 mg/dL (74-106); HDL Cholesterol 48 mg/dL (40-60); LDL Cholesterol,Calculated 141 mg/dL (0-130); Magnesium 1.9 mg/dL (1.6-2.6); Osmolality,Calculated 286 (275-295); Potassium 3.9 mMol/L (3.4-5.1); Sodium 143 mMol/L (136-145); Thyroid Stimulating Hormone 0.44 uIU/mL (0.55-4.78); Total Protein 6.4 gm/dL (5.7-8.2); Triglycerides 59 mg/dL (30-150); eGFR > 60 See Note
--- NOTE | 2024-06-19 07:50 | CHAP ---
Spent time with patient giving encouragement and prayer.
[2024-06-19 08:27] LABS: Collection Type, Urine Clean Catch
[2024-06-19 08:48] LABS: Bacteria,Urine 3+; Bilirubin,Urine Negative (Negative); Blood,Urine Negative (Negative); Clarity,Urine Clear (Clear/Hazy); Color,Urine Lt-Yellow (Lt Yel-Yel); Glucose, Urine Negative (Negative); Ketones,Urine Negative (Negative); Leukocyte Esterase,Urine Negative (Negative); Nitrite,Urine Positive (Negative); PH,Urine 6.5 (5.0-7.0); Protein,Urine Negative (Neg - Trace); RBC,Urine 3 /hpf (0-3); Specific Gravity,Urine 1.043 (1.001-1.035); Squamous Epithelial Cell,Urine 1 /hpf (0-5); Urobilinogen,Urine Negative mg/dL (0.0-1.0); WBC,Urine 4 /hpf (0-5)
[2024-06-19] MEDS: HEPARIN SOD INJ 5000 UNIT/ML VIAL SC ×2 (08:51→22:40)
[2024-06-19 09:06] LABS: Amphetamine/Methamp Scrn,U Negative (Negative); Barbiturate Screen,Urine Negative (Negative); Benzodiazepines Screen,Urine Positive (Negative); Benzoylecgonine Screen, Ur Negative (Negative); Fentanyl Screen,Urine Negative (Negative); Opiate Screen,Urine Negative (Negative); THC Screen,Urine Negative (Negative)
--- NOTE | 2024-06-19 10:31 | PC.NURSE ---
Pt off tp MRI
--- NOTE | 2024-06-19 11:00 | PC.NURSE ---
Pt still off to MRI
--- NOTE | 2024-06-19 11:56 | PC.CC ---
Patient was BIBA for CVA. Claudia BRANCH made aivi-is-spht contact with patient. ASW introduced self, role, and reason for visit. Patient appeared alert and oriented to self, location, and situation. At bedside was patient's , Colin Oquendo, patient provided consent for to remain in the room during assessment. Patient was pleasant and engaged in initial assessment. Patient confirmed information on the demographic and resides at home with her Colin . Colin is part of patient support system as well as her daughter, Briana Delgado [phone]. Per patient, prior to being admitted to the hospital she was able to ambulate indenpendently and complete her own ADLs with no use of DME. Patient's primary care provider is Elliot Villanueva and for prescription medications uses [facility] on [facility] in [place], [place]. Upon discharge patient plans to return back home but should she need assistance she is open to SNF placement. railroad emergency services manager to remain available for any discharge needs.
[2024-06-19] MEDS: CLOPIDOGREL BISULFATE 75 MG TABLET PO (13:16)
--- NOTE | 2024-06-19 13:18 | ESPR_ITS ---
<Statement entered by Bharat Woods MD - 06/19/24 15:11> Patient was seen and examined at the bedside. Patient is 73-year-old female admitted for stroke workup. To work currently continuing aspirin 81 mg and Plavix 75 mg and high-dose statin therapy. Neurology recommendation. Ordered PT evaluation. Neurology is following the case. A1c 5.3. LDL 141. There was a critical 90% stenosis of right middle cerebral artery. Will allow permissive hypertension today. Patient had a confirmed stroke seen on MRI brain. There was subtle acute infarct in right coronary nucleus and right basal ganglia on MRI brain. Urine culture pending. Echo with bubble study pending. All labs and orders were reviewed. I saw and examined the patient, and I agree with current management stated by Dr David MD,PGY1. Plan of care was discussed with the attending physician and resident physician. Disclaimer: Despite multiple revisions, due to the dictation software being used, the document bellow may not be free of grammatical errors including phonetic/typographic errors. However, this does not deter from our commitment to providing health care in the patient's best interest in mind. Dr. Peggy MD, PGY 2 Documentation for date of: 06/19/24 Subjective Subjective Interval history: Patient is a 73 year old female with a past medical history of hypertension, Hyperlipidemia, and COPD, with arthtitis who was admitted on 06/19/2024 with a CVA work up found to have a right caudate nucleus and right basal ganglia infarct. Patient admitted overnight, stated she began experiencing left sided numbness and left facial drop as noted by her . Grandaughter at bedsided stated she has improved an is not complaining of any loss of motor function. Patient at baseline has left leg weakness secondary to arthritis in her left knee. Pateint denied any headache or double vision. Denied any chest pain or dyspnea. Current NIHSS 2. Exam Vital Signs Temp Pulse Resp BP Pulse Ox O2 Del Method 98.5 F 71 20 180/78 H 98 Room Air 06/19/24 13:07 06/19/24 13:07 06/19/24 13:07 06/19/24 13:07 06/19/24 13:07 06/19/24 13:07 Narrative Exam General Appearance: Alert & Oriented X3, well-nourished female who is lying in bed in no acute distress HEENT: Skull symmetrical and atraumatic. Conjunctivae pink and moist. Pupils equal, round, reactive to light and accommodation (PERRL). External ear without lesion or discharge. Straight, nares patient, mucosa pink does not appear dry, no discharge. Cardio: Normal Rate and Rhythm with S1 and S2 heart sounds. No murmurs or extra heart sounds auscultated. No bruits on carotid auscultation. No peripheral edema or cyanosis. Lungs: Symmetric with good expansion. Chest and back non-tender. Breath sounds vesicular without crackles, wheezing or rhonchi Abdomen: Non-tender, Non-distended, Normal Reactive Bowel Sounds Neuro: Alert, cooperative, oriented to person, place, and time. Speech clear. CN grossly intact. Upper motor strength 5/5 and Lower motor strength 4/5, left leg decrease motor strength given likely secondary to arthritis. Facial muscles intact. Sensation intact. Objective Labs 06/20/24 04:20 06/20/24 04:20 Labs: Laboratory Results - last 24 hr 06/19/24 06/19/24 06/19/24 00:30 04:35 08:20 WBC 9.7 8.9 RBC 4.20 3.94 L Hgb 13.1 12.3 Hct 39.9 37.3 MCV 95 95 MCH 31.2 31.2 MCHC 32.8 33.0 RDW Std Deviation 46.2 45.3 Plt Count 211 179 D Neut % (Auto) 72 70 Lymph % (Auto) 18 19 [place] % (Auto) 7 8 Eos % (Auto) 2 2 Baso % (Auto) 1 1 Neut # (Auto) 7.0 6.3 Lymph # (Auto) 1.8 1.7 [place] # (Auto) 0.7 0.7 Eos # (Auto) 0.2 0.2 Baso # (Auto) 0.1 0.1 Immature Gran # (Auto) 0.02 H 0.02 H Absolute Nucleated RBC 0.00 0.00 Immature Gran % 0 0 Nucleated RBC % 0 0 PT 10.5 INR 1.0 APTT 26.1 Sodium 144 143 Potassium 4.0 3.9 Chloride 110 H 110 H Carbon Dioxide 27.0 27.2 Anion Gap 7 6 L BUN 17 17 Creatinine 1.1 1.0 Estim Creat Clear Calc Not Performed. Not Performed. eGFR 54 L > 60 BUN/Creatinine Ratio 15 17 Glucose [address] Glu mg/dL 105 Hemoglobin A1c 5.3 Calculated Osmolality 289 286 Calcium 10.3 9.4 Corrected Calcium 10.3 H 9.4 Magnesium 2.0 1.9 Total Bilirubin 0.3 0.3 AST 15 13 ALT 9 L 9 L Alkaline Phosphatase 84 71 Troponin I < 0.020 Total Protein 7.1 6.4 Albumin 4.5 4.3 Globulin 2.6 2.1 L Albumin/Globulin Ratio 1.7 2.0 Triglycerides 59 Cholesterol 201 H LDL Cholesterol, Calc 141 H HDL Cholesterol 48 Cholesterol/HDL Ratio 4.2 TSH 0.44 L Ur Collection Type Clean Catch Urine Color Lt-Yellow Urine Clarity Clear Urine pH 6.5 Ur Specific [place] 1.043 H Urine Protein Negative Urine Glucose (UA) Negative Urine Ketones Negative Urine Blood Negative Urine Nitrite Positive Urine Bilirubin Negative Urine Urobilinogen (Auto) Negative Ur Leukocyte Esterase Negative Urine RBC 3 Urine WBC 4 Ur Squamous Epith Cells 1 Urine Bacteria 3+ A Urine Opiates Screen Negative Urine Fentanyl Screen Negative Ur Barbiturates Screen Negative U Amphetamin/Meth Scrn Negative U Benzodiazepines Scrn Positive A U Cocaine Metab Screen Negative U Marijuana (THC) Screen Negative Ethyl Alcohol < 3.0 Quality Measures Quality Measures stroke Suspected type of Stroke: TIA Tenecteplase given: Reason(s) Tenecteplase not given: Outside the time window not given Rehab services: PT evaluation ordered VTE Prophylaxis: pharmaceutical Antithrombotic by day 2:: not indicated (describe) Statin ordered: >75 y/o moderate or high intensity dose Anticoagulation ordered for A-fib or flutter (current or hx): not indicated Advance care planning discussed with:: patient Assessment & Plan Assessment Current Active Medications: Generic Name Dose Route Start Last Admin Trade Name Freq PRN Reason Stop Dose Admin Acetaminophen 650 mg 06/19/24 01:19 Acetaminophen 325 Mg Tablet PO 07/19/24 01:18 Q6H PRN Fever >100.3 or Pain 1-3 Albuterol/Ipratropium 3 ml 06/19/24 02:30 Albuterol/Ipratropium (Duoneb) Rt June 3 Ml Nebu INH 07/19/24 06:59 Q6HRRT PRN SHORTNESS OF BREATH OR WHEEZE Aspirin 81 mg 06/20/24 09:00 Aspirin Ec 81 Mg Tabec PO 07/20/24 08:59 QDAY JOYCE Atorvastatin Calcium 80 mg 06/19/24 21:00 Atorvastatin Calcium 20 Mg Tablet PO 07/19/24 20:59 HS JOYCE Clopidogrel Bisulfate 75 mg 06/19/24 13:15 06/19/24 13:16 Clopidogrel Bisulfate 75 Mg Tablet PO 07/19/24 13:14 75 mg QDAY JOYCE Administration Heparin Sodium (Porcine) 5,000 unit 06/19/24 09:00 06/19/24 08:51 Heparin Sod Inj 5000 Unit/Ml Vial SC 07/03/24 08:59 5,000 unit Q12HR JOYCE Administration Labetalol HCl 10 mg 06/19/24 01:21 Labetalol Inj 5 Mg/Ml Vial 20 Ml IVP 07/19/24 01:59 Q2HR PRN elevated blood pressure Ondansetron HCl 4 mg 06/19/24 00:23 Ondansetron Inj 2 Mg/Ml Inj 2 Ml IV 07/19/24 00:22 Q4HR PRN NAUSEA OR VOMITING Plan Patient is a 73 year old female with a past medical history of hypertension, Hyperlipidemia, and COPD, with arthtitis who was admitted on 06/19/2024 with a CVA work up found to have a right caudate nucleus and right basal ganglia infarct. #Ischemic stroke to right caudate nucleus and right basal ganglia #Hyperlipidemia Etiology: Patient has a past medical history of hypertension and hyperlipidemia putting her at an increase risk for stroke. On admission NIHSS score of 2 -->during morning rounds on 06/19/2024 NIHSS 2. No significant motor deficient appreciated despite small infarct. 06/19/2024 Speech: No dysphagia Diagnostics: MRI (06/19/2024): Subtle acute infarcts in the right caudate nucleus and right basal ganglia Head/Neck CTA: (06/19/2024): suspicious for 90% stenosis distal M1 segment right middle cerebral artery. Head CT (06/19/2024): Negative for acute hemorrhage, mass effect or midline shift Lipid Panel: 201, LDL 141, HDL 48, 4.2 TSH 0.44 L ASCVD: high-intensity statins recommended; 37.4% Risk of cardiovascular event or stroke in next 10 years Plan: -Atorvastatin 80 mg HS -Asprin 81 mg Qday -Plavix 75 mg PO QDay -Echo pending -Pending Free T4 AM -Pending PT: referral -Neuro Checks -Aspiration Precautions, Head of bed 30 degrees -Bedside swallow screen and evaluation -Euglycemia and avoid Hyperthermia -Acetaminophen PRN -Allow for permissive HTN, NO TPA given, Systolic <220 or Diastolic <110 or suspected end organ failure -Allow for permissive hypertension until 7:00 AM 06/20/2024 -Labetalol PRN, give if SBP >220 or DBP >110 #Hypertension #Hypertensive Emergency, Resolved Patient has a past medical history of hypertension and on arrival in the emergency room was in hypertensive emergency with a elevated systolic blood pressure >200 and end organ damage to the brain, presenting as a stroke Plan -Currently holding home medication of Lisinopril 10 mg QDay -Allow for permissive HTN and restart tomorrow morning #COPD Not in acute COPD exacerbation. Plan -Duonebs PRN #Enlarged thyroid lobes with multiple thyroid nodules, incidental finding Plan -consider outpatient follow up w/ thyroid sonography #Apical right parenchymal disease, incidental finding Paln -consider AP lordotic chest follow up Health Maintenance: Disp: Pt is currently admitted to floors for further management of ischemic stroke awaiting echo. FEN: cardiac diet DVT: on subQ heparin Code: Full Code - The patient's plan was discussed with attending Dr. Sloan and senior residents Dr. Peggy Hernandez MD PGY1 Internal Medicine Attending Provider Attestation/Addendum I have discussed and was present for the essential components of the history, physical examination, diagnosis, and treatment plan with the resident. I agree with the patient's care as documented by the resident and amended herein by me. Jacoby Sloan DO. Although this document has been carefully reviewed, there may still be some phonetic and other typographical errors. These errors are purely grammatical due to imperfections in the software program and should not be construed in any way to compromise the substance of the patient's medical care during this visit.
--- NOTE | 2024-06-19 13:21 | PCS.ST ---
Swallow Eval completed. NO dysphagia. Cognitive/communication skills baseline.
[2024-06-19] MEDS: ACETAMINOPHEN 325 MG TABLET 650 MG PO (15:55)
--- NOTE | 2024-06-19 17:43 | ESCONSULT_ITS ---
HPI Data of Consult Requesting Physician: Yomi Sloan DO Admitting Provider: Marc Ocampo MD Attending Provider: Yomi Sloan DO Primary Care Provider: Elliot Villanueva MD Consult Narrative History of present illness: 73-year old female with past medical history of hypertension, hyperlipidemia, COPD and arthritis who presented to the ED on 06/19/2024 with left-sided numbness and weakness. Per patient had numbness, tingling and weakness on her left side, also noticed a left droop. She attempted to get out of bed, she fell and struck her head on a table, no report of loss of consciousness but denied headache, bleeding, headache or slurred speech. According to them, the symptoms resolved while on the way to the ED. ED course> In the ED, patient was noted to be afebrile, hypertensive with a blood pressure of 182/106, however saturating 98% on room air. CBC and CMP were unremarkable. Based on patient's symptoms, stroke protocol was initiated and CT head was done which was negative for hemorrhage, mass effect or midline shift. Teleneuro was consulted, NIHSS was 2 and the patient was recommended to be admitted for stroke workup. Neurology consulted for further workup. cc:: cc: Yomi Sloan DO Review of Systems Review of Systems Systems Reviewed: All systems reviewed, normal except as documented Exam Vital Signs Temp Pulse Resp BP Pulse Ox O2 Del Method 99.5 F 74 19 162/96 H 95 Room Air 06/19/24 14:30 06/19/24 17:17 06/19/24 17:17 06/19/24 17:17 06/19/24 17:17 06/19/24 17:17 Narrative Exam GENERAL: Awake, alert and oriented. No acute distress. HEENT: Normocephalic, atraumatic and nontender.? Pupils are equal and reactive to light and accommodation.? Oral mucosa are moist. NECK: Supple without adenopathy. [place] midline. Nontender, carotid pulse 2+ bilaterally without bruits, no JVD.? CHEST: Heart rate and rythm normal, no murmurs, gallops auscultated. S1 & 2 normal insensity. Nontender on palpation, no deformity and no crepitus. LUNGS: Lung sounds are clear.? No wheezing, rales or ronchi.? No intercostal subcostal retraction. Room air ABDOMEN: Soft,symmetric , nontender, no guarding or rebound tenderness. No abnormal masses palpated.? No pulsatile masses or bruits.? Bowel sounds are normoactive in all 4 quadrants. EXTREMITIES: Nontender.? No pitting edema.? No cyanosis.? Patient is able to move all 4 extremities. SKIN: No rashes noted. NEURO:? Cranial nerves intact.? There is no focalization.? GCS is 15. NIHSS 0 Results Labs 06/20/24 04:20 06/20/24 04:20 Labs: Short CBC 06/19/24 06/19/24 Range/Units 00:30 04:35 WBC 9.7 8.9 (3.6-11.0) Thou/mm3 Hgb 13.1 12.3 (12.0-16.0) g/dL Hct 39.9 37.3 (36.0-46.0) % Plt Count 211 179 D (140-440) Thou/mm3 BMP 06/19/24 06/19/24 00:30 04:35 Sodium 144 143 Potassium 4.0 3.9 Chloride 110 H 110 H Carbon Dioxide 27.0 27.2 BUN 17 17 Creatinine 1.1 1.0 Glucose 108 H 107 H Calcium 10.3 9.4 Cardiac Enzymes 06/19/24 Range/Units 00:30 Troponin I < 0.020 (0.0-0.045) ng/mL Liver Function 06/19/24 06/19/24 Range/Units 00:30 04:35 Total Bilirubin 0.3 0.3 (0.3-1.2) mg/dL AST 15 13 (0-34) U/L ALT 9 L 9 L (10-49) U/L Alkaline Phosphatase 84 71 (46-116) U/L Albumin 4.5 4.3 (3.4-4.8) gm/dL Urine 06/19/24 Range/Units 08:20 Urine Color Lt-Yellow (Lt Yel-Yel) Urine Clarity Clear (Clear/Hazy) Urine pH 6.5 (5.0-7.0) Ur Specific [place] 1.043 H (1.001-1.035) Urine Protein Negative (Neg - Trace) Urine Glucose (UA) Negative (Negative) Quality Measures Quality Measures stroke Suspected type of Stroke: TIA Tenecteplase given: Reason(s) Tenecteplase not given: Outside the time window not given Rehab services: PT evaluation ordered and Speech Language Pathology eval ordered VTE Prophylaxis: not ordered Antithrombotic by day 2:: not indicated (describe) Statin ordered: >75 y/o moderate or high intensity dose Anticoagulation ordered for A-fib or flutter (current or hx): not indicated Advance care planning discussed with:: patient and spouse Medications Home Medications and Allergies Home Medications ?Medication ?Instructions ?Recorded ?Confirmed ?Type acetaminophen 650 mg 650 mg PO Q8HR PRN Pain 06/19/24 06/19/24 History tablet,extended release albuterol sulfate 90 mcg/actuation 2 puff inhalation Q4-5H PRN 06/19/24 06/19/24 History aerosol inhaler Shortness Of Breath alprazolam 0.5 mg tablet 0.5 mg PO QPM 06/19/24 06/19/24 History budesonide 160 mcg-glycopyr 9 1 puff inhalation 2XD 06/19/24 06/19/24 History mcg-formot 4.8 mcg/actuation HFA inhaler (Breztri Aerosphere) fluticasone propionate 50 1 spray intranasal 1XD 06/19/24 06/19/24 History mcg/actuation nasal spray,suspension lisinopril 10 mg tablet 10 mg PO 1XD 06/19/24 06/19/24 History Allergies Allergy/AdvReac Type Severity Reaction Status Date / Time No Known Allergies Allergy Verified 06/19/24 00:27 Visit Medications Acetaminophen (Acetaminophen 325 Mg Tablet) 650 mg PO Q6H PRN PRN Reason: Fever >100.3 or Pain 1-3 Stop: 07/19/24 01:18 Last Admin: 06/19/24 15:55 Dose: 650 mg Albuterol/Ipratropium (Albuterol/Ipratropium (Duoneb) Rt June 3 Ml Nebu) 3 ml INH Q6HRRT PRN PRN Reason: SHORTNESS OF BREATH OR WHEEZE Stop: 07/19/24 06:59 Aspirin (Aspirin Ec 81 Mg Tabec) 81 mg PO QDAY JOYCE Stop: 07/20/24 08:59 Atorvastatin Calcium (Atorvastatin Calcium 20 Mg Tablet) 80 mg PO HS JOYCE Stop: 07/19/24 20:59 Clopidogrel Bisulfate (Clopidogrel Bisulfate 75 Mg Tablet) 75 mg PO QDAY [facility] Stop: 07/19/24 13:14 Last Admin: 06/19/24 13:16 Dose: 75 mg Heparin Sodium (Porcine) (Heparin Sod Inj 5000 Unit/Ml Vial) 5,000 unit SC Q12HR JOYCE Stop: 07/03/24 08:59 Last Admin: 06/19/24 08:51 Dose: 5,000 unit Labetalol HCl (Labetalol Inj 5 Mg/Ml Vial 20 Ml) 10 mg IVP Q2HR PRN PRN Reason: elevated blood pressure Stop: 07/19/24 01:59 Ondansetron HCl (Ondansetron Inj 2 Mg/Ml Inj 2 Ml) 4 mg IV Q4HR PRN PRN Reason: NAUSEA OR VOMITING Stop: 07/19/24 00:22 Discontinued Medications Aspirin (Aspirin 325 Mg Tablet) 325 mg PO X1 ONE Stop: 06/19/24 01:04 Last Admin: 06/19/24 01:11 Dose: 325 mg Aspirin (Aspirin 325 Mg Tablet) 325 mg PO QDAY [facility] Stop: 07/19/24 08:59 Last Admin: 06/19/24 08:51 Dose: 325 mg Aspirin (Aspirin Ec 81 Mg Tabec) 81 mg PO X1 [facility] Stop: 07/20/24 08:59 Labetalol HCl (Labetalol Inj 5 Mg/Ml Vial 20 Ml) 10 mg IVP X1 ONE Stop: 06/19/24 01:17 Last Admin: 06/19/24 04:39 Dose: Not Given Metoclopramide HCl (Metoclopramide Inj 5 Mg/Ml Vial 2 Ml) 10 mg IVP X1 ONE; Protocol Stop: 06/19/24 17:33 Assessment & Plan Plan 73-year old female with past medical history of hypertension, hyperlipidemia, COPD and arthritis who presented to the ED on 06/19/2024 with left-sided numbness and weakness. Per patient had numbness, tingling and weakness on her left side, also noticed a left droop. She attempted to get out of bed, she fell and struck her head on a table, no report of loss of consciousness but denied headache, bleeding, headache or slurred speech. According to them, the symptoms resolved while on the way to the ED. ED course> In the ED, patient was noted to be afebrile, hypertensive with a blood pressure of 182/106, however saturating 98% on room air. CBC and CMP were unremarkable. Based on patient's symptoms, stroke protocol was initiated and CT head was done which was negative for hemorrhage, mass effect or midline shift. Teleneuro was consulted, NIHSS was 2 and the patient was recommended to be admitted for stroke workup. Neurology consulted for further workup. #Acute CVA -Initial symptoms left sided weakness, numbness and facial droop, resolved upon arrival to ED -Head CT while on the ED was negative for hemorrhage, mass effect or midline shift. -Brain MRI : Sub acute infarcts in the right caudate nucleus and right basal ganglia -Recommned dual antiplatelet therapy along with atorvastatin -Follow up echocardiogram Patient's care discussed with attending physician, Dr Argentina Fountain MD PGY3 Attending Provider Attestation/Addendum I have seen and examined the patient at the bedside and I agree with resident's findings, assessment and plan of care. Will follow-up with echocardiogram report and then decide about the discharge tomorrow as she has no residual deficit after the stroke.
[2024-06-19] MEDS: METOCLOPRAMIDE INJ 5 MG/ML VIAL 2 ML 10 MG IVP (18:06)
--- NOTE | 2024-06-19 18:22 | PC.NURSE ---
Pt back from [facility]
--- NOTE | 2024-06-19 22:09 | PC.NURSE ---
patient in room 263 transferred from ED.
[2024-06-19] MEDS: ATORVASTATIN CALCIUM 20 MG TABLET 80 MG PO (22:41)
[2024-06-20] VITALS: BP 148/71; PULSE 73; PULSE 75; RESP 20; TEMP 36.1; O2SAT 97
[2024-06-20 04:00] VITALS: BP 166/80; PULSE 77; PULSE 89; RESP 20; TEMP 36.6; O2SAT 97
[2024-06-20 05:50] LABS: Basophils % (Auto) 1 % (0-2.5); Eosinophils # (Auto) 0.2 Thou/mm3 (0.0-0.5); Eosinophils % (Auto) 3 % (0-10); Hematocrit 39.1 % (36.0-46.0); Hemoglobin 12.7 g/dL (12.0-16.0); Immature Granulocytes % (Auto) 0 % (0-0); Immature Granulocytes Auto 0.02 Thou/mm3 (0.00-0.00); Lymphocytes # (Auto) 1.6 Thou/mm3 (1.0-4.8); Lymphocytes % (Auto) 23 % (10-50); Mean Corpuscular HGB Conc 32.5 g/dl (31.0-37.0); Mean Corpuscular Hemoglobin 31.1 pg (25.0-35.0); Mean Corpuscular Volume 96 fL (80-100); Monocytes # (Auto) 0.7 Thou/mm3 (0.0-0.8); Monocytes % (Auto) 9 % (0-12); Neutrophils # (Auto) 4.6 Thou/mm3 (1.8-7.7); Neutrophils % (Auto) 64 % (37-80); Nucleated Red Blood Cell % 0 /100 WBC (0); Platelet Count 205 Thou/mm3 (140-440); RDW Standard Deviation 46.5 fL (36.4-46.3); Red Blood Count 4.09 Miln/mm3 (4.00-5.20); White Blood Count 7.1 Thou/mm3 (3.6-11.0)
[2024-06-20 06:39] LABS: Alanine Aminotransferase 7 U/L (10-49); Albumin, Serum 4.4 gm/dL (3.4-4.8); Alkaline Phosphatase 75 U/L (46-116); Anion Gap 6 (7-16); Aspartate Amino Transferase 13 U/L (0-34); BUN/Creatinine Ratio 16 Ratio (12-20); Bilirubin,Total 0.6 mg/dL (0.3-1.2); Blood Urea Nitrogen 16 mg/dL (9-23); Calcium 9.9 mg/dL (8.3-10.6); Calcium (Corrected) 9.9 mg/dL (8.5-10.1); Carbon Dioxide 29.1 mMol/L (20.0-31.0); Chloride 106 mMol/L (98-107); Estimated Creatinine Clearance 50.2 mL/min (>60); Globulin 2.2 gm/dL (2.3-3.5); Glucose 91 mg/dL (74-106); Magnesium 1.9 mg/dL (1.6-2.6); Osmolality,Calculated 282 (275-295); Phosphorous 3.2 mg/dL (2.4-5.1); Potassium 4.2 mMol/L (3.4-5.1); Sodium 141 mMol/L (136-145); Total Protein 6.6 gm/dL (5.7-8.2); eGFR > 60 See Note
[2024-06-20 08:00] VITALS: BP 150/82; PULSE 81; PULSE 84; RESP 19; TEMP 36.2; O2SAT 95
--- NOTE | 2024-06-20 08:10 | PC.NURSE ---
Clarified administration of Heparin with MD Hernandez. MD tate administration with aspirin and plavix
[2024-06-20] MEDS: Magnesium Sulfate 4 GM Ivpb 4 GM/50 ML BAG IV (08:16)
[2024-06-20 08:17] VITALS: BP 150/82; PULSE 84
[2024-06-20] MEDS: CLOPIDOGREL BISULFATE 75 MG TABLET PO (08:17)
[2024-06-20] MEDS: ASPIRIN EC 81 MG TABEC PO (08:17)
[2024-06-20] MEDS: Lisinopril 2.5 MG TABLET 10 MG PO (08:17)
[2024-06-20 12:00] VITALS: BP 146/84; PULSE 80; PULSE 97; RESP 22; TEMP 36.4; O2SAT 93
--- NOTE | 2024-06-20 12:56 | PD.VPROG1 ---
Telemedicine visit statement This visit was conducted with the use of phone was obtained on 06/20/24 at 1256. Documentation for date of: 06/20/24 Subjective Subjective Interval history: Patient is in telemetry. No new symptoms reported or recurrence of similar episodes after admission. Patient is back to baseline. Virtual exam Vital Signs Temp Pulse Resp BP Pulse Ox O2 Del Method 97.5 F 97 22 H 146/84 H 93 L Room Air 06/20/24 12:00 06/20/24 12:00 06/20/24 12:00 06/20/24 12:00 06/20/24 12:00 06/20/24 12:00 Objective Labs 06/20/24 04:20 06/20/24 04:20 Labs: Laboratory Results - last 24 hr 06/20/24 04:20 WBC 7.1 RBC 4.09 Hgb 12.7 Hct 39.1 MCV 96 MCH 31.1 MCHC 32.5 RDW Std Deviation 46.5 H Plt Count 205 Neut % (Auto) 64 Lymph % (Auto) 23 [place] % (Auto) 9 Eos % (Auto) 3 Baso % (Auto) 1 Neut # (Auto) 4.6 Lymph # (Auto) 1.6 [place] # (Auto) 0.7 Eos # (Auto) 0.2 Baso # (Auto) 0.0 Immature Gran # (Auto) 0.02 H Absolute Nucleated RBC 0.00 Immature Gran % 0 Nucleated RBC % 0 Sodium 141 Potassium 4.2 Chloride 106 Carbon Dioxide 29.1 Anion Gap 6 L BUN 16 Creatinine 1.0 Estim Creat Clear Calc 50.2 L eGFR > 60 BUN/Creatinine Ratio 16 Glucose 91 Calculated Osmolality 282 Calcium 9.9 Corrected Calcium 9.9 Phosphorus 3.2 Magnesium 1.9 Total Bilirubin 0.6 AST 13 ALT 7 L Alkaline Phosphatase 75 Total Protein 6.6 Albumin 4.4 Globulin 2.2 L Albumin/Globulin Ratio 2.0 Free T4 1.10 Assessment & Plan Problem List (1) Acute CVA (cerebrovascular accident): Status: Acute Assessment and plan: Reassurance given to the patient regarding the negative echocardiogram and MRI brain showing 2 subacute infarcts in the basal ganglia Patient is stable for discharge home on aspirin 81 mg for 21 days along with Plavix 75 mg daily and statin. Follow-up in 2 weeks.
--- NOTE | 2024-06-20 13:01 | ESDS_ITS ---
<Statement entered by Bharat Woods MD - 06/20/24 13:17> Patient was seen and examined at the bedside. Patient was admitted for stroke workup. Echocardiogram showed EF 60-65% with decreased mobility of anterior mitral leaflet. Neurology recommended to continue aspirin and Plavix with statin therapy. PT recommended to discharge to home. Patient was advised to follow-up with PCP and neurologist within 2 weeks. All labs and orders were reviewed. I saw and examined the patient, and I agree with current management stated by Dr David MD,PGY1. Plan of care was discussed with the attending physician and resident physician. Disclaimer: Despite multiple revisions, due to the dictation software being used, the document bellow may not be free of grammatical errors including phonetic/typographic errors. However, this does not deter from our commitment to providing health care in the patient's best interest in mind. Dr. Peggy MD, PGY 2 Planned Discharge Date 06/20/24 DS: Providers Provider Date of admission: 06/19/24 01:14 Primary care physician: Elliot Villanueva MD Admitting Provider: Marc Ocampo MD Attending Provider on Admission: Yomi Sloan DO Consults: 06/19/24 00:23 Consult to Neurology / Tele-Neurology Routine Comment: Consulting Provider: [facility] 06/19/24 01:18 Consult to Neurology / Tele-Neurology Routine Comment: Consulting Provider: Shreyas Elaine Referral Physical Therapy Routine Comment: Physician Instructions: Referral Speech Therapy Urgent Comment: Attending Provider on DC: Gloria Hernandez MD Discharging Provider: Gloria Hernandez MD DS: Diagnosis Problem List Completed Was Problem List Reviewed/Reconciled?: Yes Hospital Course Hospital Course Hospital course: Summary: Patient is a 73 year old female with a past medical history of hypertension, Hyperlipidemia, and COPD, with arthtitis who was admitted on 06/19/2024 with a CVA work up found to have a right caudate nucleus and right basal ganglia infarct with no motor deficiets. ER Course: In the ED, patient was noted to be afebrile, hypertensive with a blood pressure of 182/106, however saturating 98% on room air. CBC and CMP were unremarkable except for glucose level of 108. Based on patient's symptoms, stroke protocol was initiated and CT head was done which was negative for hemorrhage, mass effect or midline shift. Teleneuro was consulted, NIHSS was 2 and the patient was recommended to be admitted for CVA rule out. Hospital Course: On floors, brain MRI obtained on (06/19/2024) and shown to have a subtle acute infarct in the right caudate nucleus and the right basal ganglia. 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 TSH was low 0.44 but free T4 follow-up within normal limits. Lipid panel showed triglycerides 201, LDL 141, HDL 48. ASCVD risk score recommends high intensity statins. Patient started on atorvastatin 80 mg at bedtime, aspirin 81 mg daily, and Plavix 75 daily physical therapy and speech evaluation performed and cleared for discharge. Echo performed on 06/19/2024) showed no PFO or ASD. Estimated ejection fraction of 60 to 65%. -Please start new medication Aspirin 81 mg once daily for stroke prevention -Please start new medication Clopidogrel 75 mg once daily for stroke prevention -Aspirin and Clopidogrel can both cause increased risk of bleeding, if you notice any bleeding please hold medication and speak to primary care doctor or neurologist. -Please start new medication Atorvastatin 80 mg at night for cholesterol reduction -Continue home medication of acetaminophen 650 mg oral every 8 hours as needed -Continue home albuterol inhaler, continue alprazolam 0.5 mg, Breztri Aerospher, Flucticasone, Lisinoprile -Please follow up with primary care provider within 1 to 2 weeks from discharge -Please follow up with Dr. Elaine, neurologist, within 1 to 2 weeks form discharge. -Disposition-Home -If symptoms worsen please return to the emergency room -If you do not have a primary care doctor, may visit the [facility] at [address] [place] [address] [address], [place] [address]. P: [phone] Disposition: Home #Ischemic stroke to right caudate nucleus and right basal ganglia #Hyperlipidemia #Hypertension #Hypertensive Emergency, Resolved #COPD #Enlarged thyroid lobes with multiple thyroid nodules, incidental finding (consider outpatient follow up w/ thyroid sonography) #Apical right parenchymal disease, incidental finding (consider outpatient follow up with AP lordotic chest) Time Spent with Patient Time attestation: Total time spent providing and/or coordinating discharge services: greater than 35 minutes spent on care Exam Vital Signs Temp Pulse Resp BP Pulse Ox O2 Del Method 97.5 F 97 22 H 146/84 H 93 L Room Air 06/20/24 12:00 06/20/24 12:00 06/20/24 12:00 06/20/24 12:00 06/20/24 12:00 06/20/24 12:00 Narrative Exam General Appearance: Alert & Oriented X3, well-nourished female who is lying in bed in no acute distress HEENT: Skull symmetrical and atraumatic. Conjunctivae pin and moist. Pupils equal, round, reactive to light and accommodation (PERRL). External ear without lesion or discharge. Straight, nares patient, mucosa pink, no discharge. Cardio: Normal Rate and Rhythm with S1 and S2 heart sounds. No murmurs or extra heart sounds auscultated. No bruits on carotid auscultation. No peripheral edema or cyanosis. Lungs: Symmetric with good expansion. Chest and back non-tender. Breath sounds vesicular without crackles, wheezing or rhonchi Abdomen: Non-tender, Non-distended, Normal Reactive Bowel Sounds Neuro: YES Alert, YES cooperative, YES oriented to person, YES place, and YES time. Speech clear. CN grossly intact. Upper motor strength 5/5 and Lower motor strength 5/5. Sensation intact. Discharge Plan Plan Patient Disposition: HOME (Self Care) Disposition Comment: Dr. Ocampo - Telemetry Care Plan Goals: -Please start new medication Aspirin 81 mg once daily for stroke prevention -Please start new medication Clopidogrel 75 mg once daily for stroke prevention -Aspirin and Clopidogrel can both cause increased risk of bleeding, if you notice any bleeding please hold medication and speak to primary care doctor or neurologist. -Please start new medication Atorvastatin 80 mg at night for cholesterol reduction -Continue home medication of acetaminophen 650 mg oral every 8 hours as needed -Continue home albuterol inhaler, continue alprazolam 0.5 mg, Breztri Aerospher, Flucticasone, Lisinoprile -Please follow up with primary care provider within 1 to 2 weeks from discharge -Please follow up with Dr. Elaine, neurologist, within 1 to 2 weeks form discharge. -Disposition-Home -If symptoms worsen please return to the emergency room -If you do not have a primary care doctor, may visit the [facility] at [address] [place] [address] [address] [address]. P: [phone] Prescriptions/Referrals Prescriptions/Med Rec: New clopidogrel 75 mg Tablet 75 mg PO QDAY 30 Days Qty: 30 0RF aspirin 81 mg Tablet,Delayed Release (Dr/Ec) 81 mg PO QDAY 30 Days Qty: 30 0RF atorvastatin 80 mg tablet 80 mg PO HS 30 Days Qty: 30 0RF Continued acetaminophen 650 mg tablet extended release 650 mg PO Q8HR PRN (Reason: Pain) Patient Comments: take 2 tablets by mouth every 8 hours if needed SWALLOWING WHOLE ... (REFER TO PRESCRIPTION NOTES). alprazolam 0.5 mg tablet 0.5 mg PO QPM Patient Comments: take 1 tablet by mouth once daily lisinopril 10 mg tablet 10 mg PO 1XD Patient Comments: take 1 tablet by mouth once daily albuterol sulfate 90 mcg/actuation HFA aerosol inhaler 2 puff INHALATION Q4-5H PRN (Reason: Shortness Of Breath) Patient Comments: inhale 2 puffs by mouth and INTO THE LUNGS every 4 to 6 hours if needed fluticasone propionate 50 mcg/actuation spray,suspension 1 spray INTRANASAL 1XD Patient Comments: INSTILL 1 TO 2 SPRAYS INTO EACH NOSTRIL ONCE DAILY IF NEEDED Breztri Aerosphere 160-9-4.8 mcg/actuation HFA aerosol inhaler 1 puff INHALATION 2XD Patient Comments: inhale 2 puffs by mouth twice a day every morning and every evening Discontinued meloxicam 15 mg tablet 15 mg PO 1XD Patient Comments: take 1 tablet by mouth once daily Referrals: Elliot Villanueva MD [Primary Care Provider] - Shreyas Elaine MD [Physician] - Patient/Caregiver Discharge Instructions Discharge Activity: activity as tolerated Education Materials: Symptoms of Stroke, Stroke: Self-Care, Discharge Instructions for Stroke Print Language: Citizen Of [place] Stand Alone Forms: Shira Award Info., Patient Portal Info Letter Discharge Order Discharge Orders: Discharge (Routine); Ordered 06/20/24 Ordered By: Bharat Woods Quality Discharge Quality Measures VTE prophylaxis Attestestation Attestation I have discussed and was present for the essential components of the discharge history, physical examination, diagnosis, and discharge treatment plan with the resident. I agree with the patient's discharge care as documented by the resident and amended herein by me. Jacoby Sloan DO. The patient understood all discharge instructions, all questions were answered satisfactorily. The patient was instructed to return to the Emergency Department is symptoms worsened or persisted. Patient discharged on aspirin and Plavix as well as atorvastatin, physical therapy evaluation determined that no additional PT needed. Patient was stable, afebrile, tolerating p.o. intake and ambulatory at time of discharge home. Patient will need to follow-up with her primary care provider and neurology as stated above. Although this document has been carefully reviewed, there may still be some p honetic and other typographical errors. These errors are purely grammatical due to imperfections in the software program and should not be construed in any way to compromise the substance of the patient's medical care during this visit.
--- NOTE | 2024-06-20 14:19 | PC.SS ---
Rounding Note: Plan is to d/c the patient home today.
== END 2024-06-20 14:01 | disposition home or self-care (01) | DRG 65 ==
LOC: SERX 02:08 → SERHOLD 02:20 → S2NX 22:12
PROVIDERS: Student in an Organized Health Care Education/Training Program; Admitting Provider Internal Medicine; Emergency Provider Emergency Medicine; PCP Internal Medicine Pulmonary Disease; Visit Provider Student in an Organized Health Care Education/Training Program
DX: I63.9 Cerebral infarction, unspecified (principal); G81.94 Hemiplegia, unspecified affecting left nondominant side; I16.1 Hypertensive emergency; M19.90 Unspecified osteoarthritis, unspecified site; I10 Essential (primary) hypertension; R29.702 NIHSS score 2; E78.5 Hyperlipidemia, unspecified; J44.9 Chronic obstructive pulmonary disease, unspecified; E04.2 Nontoxic multinodular goiter; I66.01 Occlusion and stenosis of right middle cerebral artery; M17.12 Unilateral primary osteoarthritis, left knee; R29.810 Facial weakness
CPT/HCPCS: 36415; 70450; 70496; 70498; 70544; 80053; 80061; 80307; 80320; 81001; 83036; 83735; 83880; 84100; 84439; 84443; 84484; 85025; 85610; 85730; 87077; 87086; 87186; 87811; 92526; 92610; 93005; 93306; 96372; 96374; 97162; 99291; A4649; J1643; J2765; J3475; Q9967; A9270; G0480; J1644